=== PATIENT | male | born 1950 | race Caucasian/White ===

== ENCOUNTER 2017-06-20 14:08 | Emergency (ER) | payer MEDICARE, BC ==
[2017-06-20] MEDS ORDERED: SODIUM CHLORIDE 0.9% 500 ML IV STA (14:40)
[2017-06-20] MEDS ORDERED: levETIRAcetam IV 1,000 MG in SALINE 1 100ML.BAG IVPB STA (14:40)
--- NOTE | 2017-06-20 14:50 | ED ---
General Adult HPI - General Chief complaint: Seizure Stated complaint: Seizure Time Seen by Provider: 06/20/17 14:14 Source: patient, family, EMS, RN notes reviewed Mode of arrival: EMS - History of Present Illness Initial comments: 67-year-old male with history of intracranial hemorrhage, and previous diagnosis of seizure disorder presents with a generalized seizure. Patient was washing his car, his left hand began to tighten up, and he fell to the grass. Patient has no recollection of the seizure activity but he is certain that he had a seizure. Approximate time course 3-5 minutes. Patient was initially postictal, he patient was alert and oriented at the time of arrival to the emergency department. He had a seizure approximately one year ago which was secondary to intracranial hemorrhage. Patient did have craniotomy at that time. He has residual left-sided weakness primarily in the upper extremity. He was taking Keppra 500 mg twice a day up until October of this year. He has been off seizure medication for approximately 6 months. Patient denies current headache. Denies new focal weakness. Denies chest or shortness of breath. Patient did bite the inside of his cheek. He has additional past medical history of coronary artery disease status post CABG and is on aspirin daily. No other anticoagulation. - Related Data Home Medications Medication Instructions Recorded Confirmed Aspirin 81 mg PO DAILY 09/30/15 06/20/17 Cholecalciferol [Vitamin D3] 1,000 unit PO DAILY 09/30/15 06/20/17 Lisinopril [Zestril] 10 mg PO DAILY 09/30/15 06/20/17 Timolol 0.25% Ophth Soln [Timoptic 1 drop BOTH EYES DAILY 09/30/15 06/20/17 0.25% Ophth Soln] Acetaminophen Tab [Tylenol Tab] 1,000 mg PO Q6HR PRN 06/20/17 06/20/17 Atorvastatin [Lipitor] 10 mg PO DAILY 06/20/17 06/20/17 Metoprolol Tartrate [Lopressor] 25 mg PO BID 06/20/17 06/20/17 Allergies Allergy/AdvReac Type Severity Reaction Status Date / Time No Known Allergies Allergy Verified 06/20/17 14:18 Review of Systems ROS Statement: Those systems with pertinent positive or pertinent negative responses have been documented in the HPI. ROS Other: All systems not noted in ROS Statement are negative. 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 Pt had been sent to [facility] when he presented with L upper and lower extremity weakness. He never received thrombolytics. His weakness improved. Discharge diagnosis from [facility] included: resolving acute ischemic stroke, atrial myxoma, newly diagnosed wide complex tachycardia. Other HX: Parathyroid adenoma, hyperparathyroidism, RLS, glaucoma. History of Any Multi-Drug Resistant Organisms: None Reported Past Surgical History: Tonsillectomy Additional Past Surgical History / Comment(s): Bilateral cataract removal, colonoscopy, R parathyroidectomy. Past Anesthesia/Blood Transfusion Reactions: No Reported Reaction Past Psychological History: No Psychological Hx Reported Smoking Status: Former smoker Past Alcohol Use History: Occasional - Past Family History Father Family Medical History: Myocardial Infarction ([place]) (Father at the age of the 42 from myocardial infarction) Additional Family Medical History / Comment(s): Pt's biological father of a [place] at age 42 yrs. Mother Family Medical History: Cancer (Mother at age of 82 from leukemia) Additional Family Medical History / Comment(s): Mother of leukemia at age 82 ys. Brother(s) Family Medical History: No Reported History (Patient has one brother no major medical problems) Sister(s) Family Medical History: No Reported History (Patient has 2 sisters no major medical problems) Son(s) Family Medical History: No Reported History (Patient has 2 sons no major medical problems) General Exam General appearance: alert, in no apparent distress Head exam: Present: atraumatic, normocephalic Eye exam: Present: normal appearance, PERRL ENT exam: Present: other (Superficial laceration to the right cheek) Neck exam: Present: normal inspection, full ROM. Absent: tenderness, meningismus Respiratory exam: Present: normal lung sounds bilaterally. Absent: respiratory distress, wheezes Cardiovascular Exam: Present: regular rate, normal rhythm GI/Abdominal exam: Present: soft. Absent: distended, tenderness Extremities exam: Present: normal inspection, normal capillary refill. Absent: pedal edema Back exam: Present: normal inspection, full ROM Neurological exam: Present: alert, oriented X3, CN II-XII intact, motor sensory deficit (Decreased advertising job titles strength in the left upper extremity) Psychiatric exam: Present: normal affect, normal mood Skin exam: Present: warm, dry, intact, normal color. Absent: rash, cyanosis, diaphoretic Course Vital Signs 06/20/17 14:13 Temperature 97.5 F L Pulse Rate 70 Respiratory 16 Rate Blood Pressure 134/77 O2 Sat by Pulse 90 L Oximetry EKG Findings - EKG Comments: EKG Findings:: EKG shows sinus rhythm, ventricular rate 65, WV 190, castration 88, QTC 453, no signs of ST segment elevation or depression, no T-wave abnormality Medical Decision Making - Medical Decision Making 67-year-old male with previous history of intracranial hemorrhage with left- sided deficit presents with seizure activity. This is similar presentation to one year ago when the patient did have spontaneous intracranial hemorrhage with seizure. Patient not currently on any antiseizure medications. On examination patient does have decreased advertising job titles strength in the left upper extremity which according to the patient and family is baseline. Denies any headache. Denies any other symptoms. CT is obtained. This does show right intraparenchymal hemorrhage Auditory studies including CBC, CMP, urinalysis are unremarkable EKG is normal sinus rhythm with no signs of ischemia Patient is given 1 g of Keppra in the emergency department. Patient will be transferred to [facility], this is the site of his previous treatment. Diagnosis: Spontaneous intracranial parenchymal hemorrhage, seizure. Disposition: Transfer to [facility]. - Lab Data Result diagrams: 06/20/17 14:57 06/20/17 14:57 Lab Results 06/20/17 06/20/17 06/20/17 Range/Units 14:57 14:57 15:00 WBC 9.9 (3.8-10.6) k/uL RBC 4.97 (4.30-5.90) m/uL Hgb 16.8 (13.0-17.5) gm/dL Hct 47.6 (39.0-53.0) % MCV 95.8 (80.0-100.0) fL MCH 33.9 (25.0-35.0) pg MCHC 35.4 (31.0-37.0) g/dL RDW 12.2 (11.5-15.5) % Plt Count 210 (150-450) k/uL Neutrophils % 85 % Lymphocytes % 7 % Monocytes % 6 % Eosinophils % 1 % Basophils % 0 % Neutrophils # 8.4 H (1.3-7.7) k/uL Lymphocytes # 0.7 L (1.0-4.8) k/uL Monocytes # 0.6 (0-1.0) k/uL Eosinophils # 0.1 (0-0.7) k/uL Basophils # 0.0 (0-0.2) k/uL Sodium 140 (137-145) mmol/L Potassium 4.3 (3.5-5.1) mmol/L Chloride 108 H (98-107) mmol/L Carbon Dioxide 24 (22-30) mmol/L Anion Gap 8 mmol/L BUN 18 (9-20) mg/dL Creatinine 0.80 (0.66-1.25) mg/dL Est GFR (MDRD) Af Amer >60 (>60 ml/min/1.73 sqM) Est GFR (MDRD) Non-Af >60 (>60 ml/min/1.73 sqM) Glucose 101 H (74-99) mg/dL Calcium 9.1 (8.4-10.2) mg/dL Total Bilirubin 0.9 (0.2-1.3) mg/dL AST 40 (17-59) U/L ALT 52 (21-72) U/L Alkaline Phosphatase 93 (38-126) U/L Total Protein 5.7 L (6.3-8.2) g/dL Albumin 3.8 (3.5-5.0) g/dL Urine Color Yellow Urine Appearance Clear (Clear) Urine pH 5.5 (5.0-8.0) Ur Specific [place] 1.017 (1.001-1.035) Urine Protein Trace H (Negative) Urine Glucose (UA) Negative (Negative) Urine Ketones Trace H (Negative) Urine Blood Negative (Negative) Urine Nitrite Negative (Negative) Urine Bilirubin Negative (Negative) Urine Urobilinogen <2.0 (<2.0) mg/dL Ur Leukocyte Esterase Negative (Negative) Critical Care Time Critical Care Time: Yes Total Critical Care Time: 35 Disposition Clinical Impression: Intracranial hemorrhage, Generalized seizure Disposition: OTHER INSTITUTION NOT DEFINED Condition: Serious Referrals: Bulmaro Acuña MD [Primary Care Provider] - 1-2 days Decision Date: 06/20/17 Decision Time: 15:33 - Out of Hospital Transfer - Req. Specs Out of Hospital Transfer - Requested Specifics: Surgical ICU (Transfer to [facility])
[2017-06-20 15:09] LABS: Basophils % (A) 0 %; CHCM 34.5; Eosinophils # (A) 0.1 k/uL (0-0.7); Eosinophils % (A) 1 %; HCT 47.6 % (39.0-53.0); HDW 2.34; HGB 16.8 gm/dL (13.0-17.5); Luc % (Auto) 1; Lymphocytes # (A) 0.7 k/uL (1.0-4.8); Lymphocytes % (A) 7 %; MCH 33.9 pg (25.0-35.0); MCHC 35.4 g/dL (31.0-37.0); MCV 95.8 fL (80.0-100.0); Mean Platelet Volume 7.3; Monocytes # (A) 0.6 k/uL (0-1.0); Monocytes % (A) 6 %; Neutrophils # (A) 8.4 k/uL (1.3-7.7); Neutrophils % (A) 85 %; RBC 4.97 m/uL (4.30-5.90); RDW 12.2 % (11.5-15.5); WBC 9.9 k/uL (3.8-10.6); WBC (Perox) 9.73
[2017-06-20 15:16] LABS: ALT 52 U/L (21-72); AST 40 U/L (17-59); Alkaline Phosphatase 93 U/L (38-126); Anion Gap 8 mmol/L; Blood Urea Nitrogen 18 mg/dL (9-20); Calcium 9.1 mg/dL (8.4-10.2); Carbon Dioxide 24 mmol/L (22-30); Chloride 108 mmol/L (98-107); Glucose 101 mg/dL (74-99); Non-African American GFR(MDRD) >60 (>60 ml/min/1.73 sqM); Potassium 4.3 mmol/L (3.5-5.1); Sodium 140 mmol/L (137-145); Total Bilirubin 0.9 mg/dL (0.2-1.3); Total Protein 5.7 g/dL (6.3-8.2)
[2017-06-20 15:19] LABS: Appearance,Urine Clear (Clear); Bilirubin,Urine Negative (Negative); Glucose,Urine (UA) Negative (Negative); Ketones,Urine Trace (Negative); Leukocyte Esterase,Urine Negative (Negative); Nitrite,Urine Negative (Negative); PH, Urine 5.5 (5.0-8.0); Protein,Urine Trace (Negative); Specific Gravity,Urine 1.017 (1.001-1.035); UA Billing (MACRO vs. MICRO) CHEM; Urobilinogen,Urine <2.0 mg/dL (<2.0)
--- NOTE | 2017-06-20 15:30 | CT ---
EXAMINATION TYPE: CT brain wo con DATE OF EXAM: 06/20/2017 COMPARISON: NONE HISTORY: Seizure today. CT DLP: 1121.00 mGycm Automated exposure control for dose reduction was used. FINDINGS: There is a 2.2 x 2.2 cm intraparenchymal hemorrhage in the right frontal lobe. There is surrounding v asogenic edema. There is a second area of intraparenchymal hemorrhage in the anterior right parietal lobe measuring 6.36 mm. There is been a previous right frontal craniotomy. Visualized portions of the paranasal sinuses and mastoids are clear. There is evidence of a previous lacunar infarct in the posterior limb of the internal capsule on the right. There is some ex vacuo en largement of the right lateral ventricle. There is only mild associated mass effect. There is no midl ine shift. IMPRESSION: 1. 2 AREAS OF PARENCHYMAL HEMORRHAGE IN THE RIGHT FRONTAL LOBE AND RIGHT ANTERIOR PARIETAL LOBE. 2. MODERATE VASOGENIC EDEMA SURROUNDING THE FRONTAL LOBE LESION. 3. EVIDENCE OF A PREVIOUS LACUNAR INFARCT IN THE POSTERIOR LIMB OF THE RIGHT INTERNAL CAPSULE EXTENDI NG INTO THE CROWDER RADIATA ON THE RIGHT. 4. POSTSURGICAL CHANGE. THIS REPORT WAS PHONED TO DR. CANDELARIO AT THE TIME OF REPORTING.
--- NOTE | 2017-06-20 15:38 | XR ---
EXAMINATION TYPE: XR chest 2V DATE OF EXAM: 06/20/2017 COMPARISON: 10/07/2015 HISTORY: Seizure TECHNIQUE: Frontal and lateral views of the chest are obtained. FINDINGS: Previously seen trace pleural effusions have resolved in the interim. There is no focal air space opacity, pleural effusion, or pneumothorax seen. The cardiac silhouette size is within normal limits. The osseous structures are intact. Mild degenerative changes of the thoracic spine are not ed. Median sternotomy wires are seen. IMPRESSION: No acute cardiopulmonary process with resolution of the previously seen trace pleural ef fusions.
[2017-06-20 15:42] VITALS: RESP 18
[2017-06-20 16:25] VITALS: BP 122/71; PULSE 72; TEMP 97.9
== END 2017-06-20 16:25 | disposition short-term general hospital (02) ==
LOC: EC 14:08
DX: S01.411A Laceration without foreign body of right cheek and temporomandibular area, initial encounter (principal); G40.409 Other generalized epilepsy and epileptic syndromes, not intractable, without status epilepticus; I61.1 Nontraumatic intracerebral hemorrhage in hemisphere, cortical; E78.5 Hyperlipidemia, unspecified; I10 Essential (primary) hypertension; I25.10 Atherosclerotic heart disease of native coronary artery without angina pectoris; H40.9 Unspecified glaucoma; Z87.891 Personal history of nicotine dependence; Z79.82 Long term (current) use of aspirin; Z79.899 Other long term (current) drug therapy; Z86.73 Personal history of transient ischemic attack (TIA), and cerebral infarction without residual deficits; Z95.1 Presence of aortocoronary bypass graft; Z98.890 Other specified postprocedural states; W18.39XA Other fall on same level, initial encounter; Y93.89 Activity, other specified
CPT/HCPCS: 99291; 96365; 36415; 93005; 80053; 85025; 81003; 71020; 70450; J1953

== ENCOUNTER → 2017-07-03 | Outpatient (CLI) | payer MEDICARE, BC ==
--- NOTE | 2017-07-03 11:49 | MR ---
EXAMINATION TYPE: MR brain wo/w con DATE OF EXAM: 07/03/2017 COMPARISON: CT brain 06/20/2017, report of CT brain from outside institution 06/29/2017 HISTORY: intracranial hemorrhage , hemorrhagic stroke TECHNIQUE: Multiplanar, multisequence images of the brain and brainstem is performed without and with IV contras t, utilizing 7 mL intravenous Gadavist . FINDINGS: Diffusion weighted images demonstrate restricted diffusion corresponding to the focal signa l abnormality described on previous reports in the right frontal lobe. There is serpiginous and linea r low signal on T2, inversion recovery sequences along the gyri and sulci atrophy convexity on the ri ght compatible with local hemosiderin deposition and prior hemorrhage. Local vasogenic edema changes are present. Increased signal present within the internal capsule on the right extending into the per iventricular white matter on T2 and inversion recovery sequences likely due to some local chronic enc ephalomalacia and stable. The ventricular system and cisternal spaces are normal in size and there ma y be mild ex vacuo phenomenon the right lateral ventricle as compared to the left. The brain volume is age appropriate. Midline structures demonstrate normal morphology. The craniocervical junction appears within normal limits. Post contrast images demonstrate ring enhancement at the level of patient's prior hemorrhage s and there is some dural enhancement present. The dural venous sinuses appear patent. The visualized sinuses are clear and the globes are intact. IMPRESSION: Findings compatible with patient's history of hematoma, additional follow-up is recommend ed.
== END | disposition home or self-care (01) ==
LOC: RADMRIMAIN 06:30
PROVIDERS: ATTEND Neurological Surgery
DX: I62.9 Nontraumatic intracranial hemorrhage, unspecified (principal); I61.9 Nontraumatic intracerebral hemorrhage, unspecified
CPT/HCPCS: 70553; A9581

== ENCOUNTER 2018-02-24 11:51 | Emergency (ER) | payer MEDICARE, BC ==
[2018-02-24 11:56] VITALS: PULSE 65
[2018-02-24] MEDS ORDERED: SODIUM CHLORIDE 0.9% 500 ML IV STA (12:05)
--- NOTE | 2018-02-24 12:07 | ED ---
General Adult HPI - General Chief complaint: Neuro Symptoms/Deficit Stated complaint: stroke symptoms Time Seen by Provider: 02/24/18 11:55 Source: patient, family, RN notes reviewed Mode of arrival: wheelchair Limitations: no limitations - History of Present Illness Initial comments: This is a 68-year-old male who presents emergency Department with a previous history of a brain bleed and stroke with some residual deficit and left side. Family noted last night he started having slurred speech and was having some coordination problems with his left hand and was dragging his left foot more than normal. Family thought it was just because he was tired but when he woke up this morning and the symptoms persisted they decided to bring to the emergency department. Patient denies any visual disturbance. Patient denies any chest pain palpitations difficulty breathing shortness of breath. Patient denies any neurologic symptoms in the right side. Patient denies any recent fever chills or cough. Patient denies abdominal pain patient denies nausea vomiting or diarrhea. - Related Data Home Medications Medication Instructions Recorded Confirmed Cholecalciferol [Vitamin D3] 1,000 unit PO DAILY@0900 09/30/15 08/23/17 Atorvastatin [Lipitor] 10 mg PO DAILY@0900 06/20/17 08/23/17 Acetaminophen Tab [Tylenol Tab] 650 mg PO Q4H PRN 08/23/17 08/23/17 Lisinopril [Zestril] 20 mg PO DAILY@2100 08/23/17 08/23/17 Sennosides [Senokot] 8.6 mg PO DAILY@0900 08/23/17 08/23/17 Timolol 0.5% Ophth Soln [Timoptic 1 drop BOTH EYES DAILY@0900 08/23/17 08/23/17 0.5% Ophth Soln] levETIRAcetam [Keppra] 500 mg PO Q12HR 08/23/17 08/23/17 Allergies Allergy/AdvReac Type Severity Reaction Status Date / Time No Known Allergies Allergy Verified 02/24/18 11:52 Review of Systems ROS Statement: Those systems with pertinent positive or pertinent negative responses have been documented in the HPI. ROS Other: All systems not noted in ROS Statement are negative. 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 Pt had been sent to [facility] when he presented with L upper and lower extremity weakness. He never received thrombolytics. His weakness improved. Discharge diagnosis from [facility] included: resolving acute ischemic stroke, atrial myxoma, newly diagnosed wide complex tachycardia. Other HX: Parathyroid adenoma, hyperparathyroidism, RLS, glaucoma. History of Any Multi-Drug Resistant Organisms: None Reported Past Surgical History: Coronary Bypass/CABG, Tonsillectomy Additional Past Surgical History / Comment(s): Bilateral cataract removal, colonoscopy, R parathyroidectomy. Brain surgery 2016-nontraumatice hematoma removed Past Anesthesia/Blood Transfusion Reactions: No Reported Reaction Past Psychological History: No Psychological Hx Reported Smoking Status: Former smoker Past Alcohol Use History: Occasional Past Drug Use History: None Reported - Past Family History Father Family Medical History: Myocardial Infarction ([place]) (Father at the age of the 42 from myocardial infarction) Additional Family Medical History / Comment(s): Pt's biological father of a [place] at age 42 yrs. Mother Family Medical History: Cancer (Mother at age of 82 from leukemia) Additional Family Medical History / Comment(s): Mother of leukemia at age 82 ys. Brother(s) Family Medical History: No Reported History (Patient has one brother no major medical problems) Sister(s) Family Medical History: No Reported History (Patient has 2 sisters no major medical problems) Son(s) Family Medical History: No Reported History (Patient has 2 sons no major medical problems) General Exam - General Exam Comments Initial Comments: GENERAL: Patient is well-developed and well-nourished. Patient is nontoxic and well- hydrated and is in no acute distress. ENT: Neck is soft and supple. No significant lymphadenopathy is noted. Oropharynx is clear. Moist mucous membranes. Neck has full range of motion without eliciting any pain. EYES: The sclera were anicteric and conjunctiva were pink and moist. Extraocular movements were intact and pupils were equal round and reactive to light. Eyelids were unremarkable. PULMONARY: Unlabored respirations. Good breath sounds bilaterally. No audible rales rhonchi or wheezing was noted. CARDIOVASCULAR: There is a regular rate and rhythm without any murmurs gallops or rubs. ABDOMEN: Soft and nontender with normal bowel sounds. No palpable organomegaly was noted. There is no palpable pulsatile mass. SKIN: Skin is clear with no lesions or rashes and otherwise unremarkable. NEUROLOGIC: Patient is alert and oriented x3. Cranial nerves II through XII are grossly intact. Motor and sensory are also intact. Patient has some slurred speech. Symmetrical smile. Patient's finger-nose on the left is grossly off. MUSCULOSKELETAL: Normal extremities with adequate strength and full range of motion. No lower extremity swelling or edema. No calf tenderness. LYMPHATICS: No significant lymphadenopathy is noted PSYCHIATRIC: Normal psychiatric evaluation. Normal interpersonal interactions appears functionally intact in deals appropriately with others. No signs of depression. No signs of anxiety. Limitations: no limitations Course Vital Signs 02/24/18 11:52 Temperature 97.7 F Pulse Rate 65 Respiratory 18 Rate Blood Pressure 184/80 O2 Sat by Pulse 94 L Oximetry Medical Decision Making - Medical Decision Making EKG shows normal sinus rhythm at 60 bpm VT interval is 186 QRS is 86 QT interval 426 QTC is 426 per patient's EKG shows no ST segment elevation or depression or T wave abnormalities are noted. Chest x-ray shows no acute abnormality. Computed tomography scan of the brain shows intracranial hemorrhage in the same area that the patient had it before except now it is larger and there is a 4 mm shift. Family request [facility]. I spoke with [facility] and they accepted the patient. - Lab Data Result diagrams: 02/24/18 12:08 02/24/18 12:08 Lab Results 02/24/18 02/24/18 02/24/18 Range/Units 12:08 12:08 12:08 WBC 7.0 (3.8-10.6) k/uL RBC 5.45 (4.30-5.90) m/uL Hgb 17.4 (13.0-17.5) gm/dL Hct 49.7 (39.0-53.0) % MCV 91.2 (80.0-100.0) fL MCH 31.8 (25.0-35.0) pg MCHC 34.9 (31.0-37.0) g/dL RDW 12.2 (11.5-15.5) % Plt Count 203 (150-450) k/uL Neutrophils % 72 % Lymphocytes % 17 % Monocytes % 6 % Eosinophils % 3 % Basophils % 1 % Neutrophils # 5.1 (1.3-7.7) k/uL Lymphocytes # 1.2 (1.0-4.8) k/uL Monocytes # 0.4 (0-1.0) k/uL Eosinophils # 0.2 (0-0.7) k/uL Basophils # 0.0 (0-0.2) k/uL PT (9.0-12.0) sec INR (<1.2) APTT (22.0-30.0) sec Sodium 142 (137-145) mmol/L Potassium 4.5 (3.5-5.1) mmol/L Chloride 105 (98-107) mmol/L Carbon Dioxide 25 (22-30) mmol/L Anion Gap 12 mmol/L BUN 12 (9-20) mg/dL Creatinine 0.90 (0.66-1.25) mg/dL Est GFR (CKD-EPI)AfAm >90 (>60 ml/min/1.73 sqM) Est GFR (CKD-EPI)NonAf 86 (>60 ml/min/1.73 sqM) Glucose 105 H (74-99) mg/dL Calcium 9.7 (8.4-10.2) mg/dL Total Bilirubin 0.7 (0.2-1.3) mg/dL AST 27 (17-59) U/L ALT 46 (21-72) U/L Alkaline Phosphatase 81 (38-126) U/L Total Creatine Kinase 59 (55-170) U/L CK-MB (CK-2) 0.5 (0.0-2.4) ng/mL CK-MB (CK-2) Rel Index 0.8 Troponin I <0.012 (0.000-0.034) ng/mL Total Protein 6.1 L (6.3-8.2) g/dL Albumin 4.2 (3.5-5.0) g/dL 02/24/18 Range/Units 12:08 WBC (3.8-10.6) k/uL RBC (4.30-5.90) m/uL Hgb (13.0-17.5) gm/dL Hct (39.0-53.0) % MCV (80.0-100.0) fL MCH (25.0-35.0) pg MCHC (31.0-37.0) g/dL RDW (11.5-15.5) % Plt Count (150-450) k/uL Neutrophils % % Lymphocytes % % Monocytes % % Eosinophils % % Basophils % % Neutrophils # (1.3-7.7) k/uL Lymphocytes # (1.0-4.8) k/uL Monocytes # (0-1.0) k/uL Eosinophils # (0-0.7) k/uL Basophils # (0-0.2) k/uL PT 10.2 (9.0-12.0) sec INR 1.0 (<1.2) APTT 24.2 (22.0-30.0) sec Sodium (137-145) mmol/L Potassium (3.5-5.1) mmol/L Chloride (98-107) mmol/L Carbon Dioxide (22-30) mmol/L Anion Gap mmol/L BUN (9-20) mg/dL Creatinine (0.66-1.25) mg/dL Est GFR (CKD-EPI)AfAm (>60 ml/min/1.73 sqM) Est GFR (CKD-EPI)NonAf (>60 ml/min/1.73 sqM) Glucose (74-99) mg/dL Calcium (8.4-10.2) mg/dL Total Bilirubin (0.2-1.3) mg/dL AST (17-59) U/L ALT (21-72) U/L Alkaline Phosphatase (38-126) U/L Total Creatine Kinase (55-170) U/L CK-MB (CK-2) (0.0-2.4) ng/mL CK-MB (CK-2) Rel Index Troponin I (0.000-0.034) ng/mL Total Protein (6.3-8.2) g/dL Albumin (3.5-5.0) g/dL Disposition Clinical Impression: Intraparenchymal hemorrhage of brain Disposition: OTHER INSTITUTION NOT DEFINED Referrals: Bulmaro Acuña MD [Primary Care Provider] - 1-2 days Time of Disposition: 12:55 - Out of Hospital Transfer - Req. Specs Out of Hospital Transfer - Requested Specifics: Other Emergency Center ([facility]
[2018-02-24 12:26] LABS: Basophils % (A) 1 %; Eosinophils # (A) 0.2 k/uL (0-0.7); Eosinophils % (A) 3 %; HCT 49.7 % (39.0-53.0); HGB 17.4 gm/dL (13.0-17.5); Lymphocytes # (A) 1.2 k/uL (1.0-4.8); Lymphocytes % (A) 17 %; MCH 31.8 pg (25.0-35.0); MCHC 34.9 g/dL (31.0-37.0); MCV 91.2 fL (80.0-100.0); Mean Platelet Volume 7.4; Monocytes # (A) 0.4 k/uL (0-1.0); Monocytes % (A) 6 %; Neutrophils # (A) 5.1 k/uL (1.3-7.7); Neutrophils % (A) 72 %; Platelet Count 203 k/uL (150-450); RBC 5.45 m/uL (4.30-5.90); RDW 12.2 % (11.5-15.5)
[2018-02-24 12:36] LABS: Partial Thromboplastin Time 24.2 sec (22.0-30.0); Prothrombin Time 10.2 sec (9.0-12.0)
[2018-02-24 12:38] LABS: ALT 46 U/L (21-72); AST 27 U/L (17-59); Albumin 4.2 g/dL (3.5-5.0); Alkaline Phosphatase 81 U/L (38-126); Anion Gap 12 mmol/L; Blood Urea Nitrogen 12 mg/dL (9-20); Calcium 9.7 mg/dL (8.4-10.2); Carbon Dioxide 25 mmol/L (22-30); Chloride 105 mmol/L (98-107); Glucose 105 mg/dL (74-99); Potassium 4.5 mmol/L (3.5-5.1); Sodium 142 mmol/L (137-145); Total Bilirubin 0.7 mg/dL (0.2-1.3); Total Protein 6.1 g/dL (6.3-8.2)
[2018-02-24 12:48] LABS: Creatine Kinase 59 U/L (55-170)
--- NOTE | 2018-02-24 12:54 | XR ---
EXAMINATION TYPE: XR chest 2V DATE OF EXAM: 02/24/2018 COMPARISON: Chest x-ray June 20, 2017. HISTORY: Altered mental status and weakness TECHNIQUE: Frontal and lateral views of the chest are obtained. FINDINGS: Overlying sternal wires are redemonstrated. There is no focal air space opacity, pleural ef fusion, or pneumothorax seen. The cardiac silhouette size is within normal limits. The osseous str uctures are intact. IMPRESSION: No acute cardiopulmonary process currently.
[2018-02-24 13:00] LABS: Creatine Kinase MB 0.5 ng/mL (0.0-2.4); Troponin I <0.012 ng/mL (0.000-0.034)
--- NOTE | 2018-02-24 13:00 | CT ---
EXAMINATION TYPE: CT brain wo con for TPA DATE OF EXAM: 02/24/2018 COMPARISON: 06/20/2017 and 07/03/2017 HISTORY: Patient complains of left side weakness. Patient has a history of prior strokes. CT DLP: 1073 mGycm Automated exposure control for dose reduction was used. FINDINGS: Hyperattenuated multilobulated oval area is seen within the right frontal lobe now measuring 4.2 x 5 5.0 x 4.3 cm in the same location in the support prior intracranial hemorrhage on the exam of 08/23/20 17. There is surrounding vasogenic edema. Posterior to this there are 2 foci of subcentimeter hyperat tenuation at the pabon-white junction of the right frontal lobe on series 3 image 36 and 39. There is mass effect around the adjacent peripheral gyri and sulci from the index mass and mass effect upon th e anterior horn of the right lateral ventricle. Additionally there is right to left midline shift of 4 mm. Right-sided calvarial frontal craniotomy defect is noted. Again there is an old CSF attenuated lacunar injury of the right lentiform nucleus. No intraventricul ar or subdural fluid collection or present. No transependymal edema. Visualized paranasal sinuses are well aerated. No transtentorial or uncal herniation. IMPRESSION: RIGHT FRONTAL INTRAPARENCHYMAL HEMORRHAGE WITH FEW SATELLITE FOCI OF HEMORRHAGE, IN THE SAME LOCATION AND ENLARGED FROM THE PRIOR OF 06/20/2017 CONCERNING FOR UNDERLYING HEMORRHAGIC MASS WITH SURROUNDING VASOGENIC EDEMA AND 4 MM RIGHT LEFT MIDLINE SHIFT. FINDINGS WERE COMMUNICATING WITH THE ORDERING ER PHYSICIAN DR. PHILLIPS AT 1240 ON 02/24/[address] ALVARADO.
[2018-02-24] MEDS ORDERED: hydrALAZINE HCL 20 MG/ML 1 ML VIAL IVP STA (13:09)
[2018-02-24 13:21] VITALS: BP 151/92; RESP 16; TEMP 98.3
== END 2018-02-24 13:30 | disposition other institution (70) ==
LOC: EC 11:51
DX: I62.9 Nontraumatic intracranial hemorrhage, unspecified (principal); I10 Essential (primary) hypertension; E78.5 Hyperlipidemia, unspecified; Z86.73 Personal history of transient ischemic attack (TIA), and cerebral infarction without residual deficits; Z95.1 Presence of aortocoronary bypass graft; Z87.891 Personal history of nicotine dependence; Z79.899 Other long term (current) drug therapy
CPT/HCPCS: 36415; 93005; 80053; 82550; 82553; 84484; 85025; 85610; 85730; 71046; 70450; 99285; 96374; J0360

== ENCOUNTER 2019-01-26 09:56 | Emergency (ER) | payer MEDICARE, BC ==
[2019-01-26 10:04] VITALS: TEMP 98.1
[2019-01-26] MEDS ORDERED: SODIUM CHLORIDE 0.9% 500 ML 500 ML IV STA (10:15)
--- NOTE | 2019-01-26 10:39 | ED ---
General Adult HPI - General Chief complaint: Neuro Symptoms/Deficit Stated complaint: lt hand weakness Time Seen by Provider: 01/26/19 10:10 Source: patient, family, RN notes reviewed Mode of arrival: wheelchair Limitations: no limitations - History of Present Illness Initial comments: this is a 68-year-old male who presents emergency Department complaining of left-sided weakness. Patient states he's had previous strokes in the past he has residual left leg and left arm weakness. Patient states he was at his baseline last night when he went to bed. Patient states when he woke up this morning he noticed his left arm lacks some coordination and his left leg was also weaker and he was dragging a little bit when he walked. Though he normally has some baseline weakness in the left side this was more than normal. Patient denied any headache patient denies any numbness per patient denies any speech disturbance or visual disturbance. Patient denies any chest pain difficulty breathing shortness of breath per patient denies abdominal pain patient's nausea vomiting diarrhea. - Related Data Home Medications Medication Instructions Recorded Confirmed Cholecalciferol [Vitamin D3] 1,000 unit PO DAILY 09/30/15 01/26/19 Atorvastatin [Lipitor] 10 mg PO DAILY 06/20/17 01/26/19 Acetaminophen Tab [Tylenol Tab] 650 mg PO Q4H PRN 08/23/17 01/26/19 Lisinopril [Zestril] 20 mg PO DAILY 08/23/17 01/26/19 Sennosides [Senokot] 8.6 mg PO DAILY 08/23/17 01/26/19 Timolol 0.5% Ophth Soln [Timoptic 1 drop BOTH EYES DAILY 08/23/17 01/26/19 0.5% Ophth Soln] HYDROcodone/APAP 7.5-325MG [[place] 1 tab PO HS 01/26/19 01/26/19 7.5-325] Lisinopril [Zestril] 20 mg PO DAILY 01/26/19 01/26/19 Meclizine [Antivert] 25 mg PO TID PRN 01/26/19 01/26/19 levETIRAcetam [Keppra] 1,000 mg PO Q12HR 01/26/19 01/26/19 rOPINIRole HCL [Requip] 1 mg PO QID 01/26/19 01/26/19 tiZANidine HCL [Zanaflex] 4 mg PO BID 01/26/19 01/26/19 Allergies Allergy/AdvReac Type Severity Reaction Status Date / Time No Known Allergies Allergy Verified 01/26/19 10:12 Review of Systems ROS Statement: Those systems with pertinent positive or pertinent negative responses have been documented in the HPI. ROS Other: All systems not noted in ROS Statement are negative. 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 Pt had been sent to [facility] when he presented with L upper and lower extremity weakness. He never received thrombolytics. His weakness improved. Discharge diagnosis from [facility] included: resolving acute ischemic stroke, atrial myxoma, newly diagnosed wide complex tachycardia. Other HX: Parathyroid adenoma, hyperparathyroidism, RLS, glaucoma. History of Any Multi-Drug Resistant Organisms: None Reported Past Surgical History: Coronary Bypass/CABG, Tonsillectomy Additional Past Surgical History / Comment(s): Bilateral cataract removal, colonoscopy, R parathyroidectomy. Brain surgery 2016-nontraumatice hematoma removed Past Anesthesia/Blood Transfusion Reactions: No Reported Reaction Past Psychological History: No Psychological Hx Reported Smoking Status: Former smoker Past Alcohol Use History: Occasional Past Drug Use History: None Reported - Past Family History Father Family Medical History: Myocardial Infarction (GA) (Father at the age of the 42 from myocardial infarction) Additional Family Medical History / Comment(s): Pt's biological father of a GA at age 42 yrs. Mother Family Medical History: Cancer (Mother at age of 82 from leukemia) Additional Family Medical History / Comment(s): Mother of leukemia at age 82 ys. Brother(s) Family Medical History: No Reported History (Patient has one brother no major medical problems) Sister(s) Family Medical History: No Reported History (Patient has 2 sisters no major medical problems) Son(s) Family Medical History: No Reported History (Patient has 2 sons no major medical problems) General Exam - General Exam Comments Initial Comments: GENERAL: Patient is well-developed and well-nourished. Patient is nontoxic and well- hydrated and is in no acute distress. ENT: Neck is soft and supple. Neck has full range of motion without eliciting any pain. EYES: The sclera were anicteric and conjunctiva were pink and moist. Extraocular movements were intact and pupils were equal round and reactive to light. Eyelids were unremarkable. PULMONARY: Unlabored respirations. Good breath sounds bilaterally. No audible rales rhonchi or wheezing was noted. CARDIOVASCULAR: There is a regular rate and rhythm without any murmurs gallops or rubs. ABDOMEN: Soft and nontender with normal bowel sounds. No palpable organomegaly was noted. There is no palpable pulsatile mass. SKIN: Skin is clear with no lesions or rashes and otherwise unremarkable. NEUROLOGIC: Patient is alert and oriented x3. Cranial nerves II through XII are grossly intact. Motor and sensory are also intact. Normal speech, volume and content. Symmetrical smile. Patient's cerebellar testing with finger to nose was normal on the right but abnormal on the left. Patient's heel to [place] on the right was normal on the left was abnormal. Patient's powder mixer was normal bilaterally patient's dorsi and plantar flexion are normal bilaterally MUSCULOSKELETAL: Normal extremities with adequate strength and full range of motion. No lower extremity swelling or edema. No calf tenderness. LYMPHATICS: No significant lymphadenopathy is noted PSYCHIATRIC: Normal psychiatric evaluation. Limitations: no limitations Course Vital Signs 01/26/19 01/26/19 01/26/19 10:01 10:22 10:30 Temperature 98.1 F Pulse Rate 61 59 L 63 Respiratory 18 18 18 Rate Blood Pressure 144/94 128/80 139/79 O2 Sat by Pulse 94 L 100 100 Oximetry 01/26/19 10:45 Temperature Pulse Rate 60 Respiratory 18 Rate Blood Pressure 136/83 O2 Sat by Pulse 100 Oximetry Medical Decision Making - Medical Decision Making Soon as I interviewed the patient I called a code stroke overhead CT of the brain and this patient showed a 1.7 cm hyperdensity high right frontal lobe is felt to reflect hemorrhage with or without underlying mass. Surrou nding vasogenic edema is noted there is a small curvilinear area of increased attenuation high right frontal lobe noted as well that may reflect foci of subarachnoid hemorrhage suspect right MCA aneurysm. I spoke with Dr. Luciano before and after the CAT scan she wanted the patient transferred to [place] I spoke with the family patient wanted to go to [place] seemed reluctant but agreed with whatever the patient wanted. I spoke with the physician doctor's assistant for Dr. Luciano and we are transferring the patient to [place] neuro ICU. I sent the patient to [place] and gave the paramedics Cardene IV in case the blood pressure elevated over 160. Currently the blood pressure was 140s systolic. Patient's EKG showed normal sinus rhythm at 60 bpm AR interval 290 QRS is 86 QT interval 422 QTC is 422. Patient's EKG shows no ST segment elevation or depression or T wave abnormalities are noted. - Lab Data Result diagrams: 01/26/19 10:59 01/26/19 10:59 Lab Results 01/26/19 01/26/19 01/26/19 Range/Units 10:20 10:59 10:59 WBC 7.5 (3.8-10.6) k/uL RBC 5.73 (4.30-5.90) m/uL Hgb 17.6 H (13.0-17.5) gm/dL Hct 52.7 (39.0-53.0) % MCV 92.1 (80.0-100.0) fL MCH 30.8 (25.0-35.0) pg MCHC 33.5 (31.0-37.0) g/dL RDW 12.4 (11.5-15.5) % Plt Count 207 (150-450) k/uL Neutrophils % 70 % Lymphocytes % 17 % Monocytes % 6 % Eosinophils % 4 % Basophils % 1 % Neutrophils # 5.3 (1.3-7.7) k/uL Lymphocytes # 1.2 (1.0-4.8) k/uL Monocytes # 0.5 (0-1.0) k/uL Eosinophils # 0.3 (0-0.7) k/uL Basophils # 0.0 (0-0.2) k/uL PT (9.0-12.0) sec INR (<1.2) APTT (22.0-30.0) sec Sodium 137 (137-145) mmol/L Potassium 4.6 (3.5-5.1) mmol/L Chloride 104 (98-107) mmol/L Carbon Dioxide 27 (22-30) mmol/L Anion Gap 6 mmol/L BUN 16 (9-20) mg/dL Creatinine 0.87 (0.66-1.25) mg/dL Est GFR (CKD-EPI)AfAm >90 (>60 ml/min/1.73 sqM) Est GFR (CKD-EPI)NonAf 88 (>60 ml/min/1.73 sqM) Glucose 99 (74-99) mg/dL POC Glucose (mg/dL) 88 (75-99) mg/dL POC Glu Front Desk Coordinator ID Caty Anderson Calcium 9.4 (8.4-10.2) mg/dL Total Bilirubin 1.0 (0.2-1.3) mg/dL AST 31 (17-59) U/L ALT 65 (21-72) U/L Alkaline Phosphatase 73 (38-126) U/L Total Creatine Kinase (55-170) U/L Total Protein 5.9 L (6.3-8.2) g/dL Albumin 3.8 (3.5-5.0) g/dL 01/26/19 01/26/19 Range/Units 10:59 10:59 WBC (3.8-10.6) k/uL RBC (4.30-5.90) m/uL Hgb (13.0-17.5) gm/dL Hct (39.0-53.0) % MCV (80.0-100.0) fL MCH (25.0-35.0) pg MCHC (31.0-37.0) g/dL RDW (11.5-15.5) % Plt Count (150-450) k/uL Neutrophils % % Lymphocytes % % Monocytes % % Eosinophils % % Basophils % % Neutrophils # (1.3-7.7) k/uL Lymphocytes # (1.0-4.8) k/uL Monocytes # (0-1.0) k/uL Eosinophils # (0-0.7) k/uL Basophils # (0-0.2) k/uL PT 10.5 (9.0-12.0) sec INR 1.0 (<1.2) APTT 25.6 (22.0-30.0) sec Sodium (137-145) mmol/L Potassium (3.5-5.1) mmol/L Chloride (98-107) mmol/L Carbon Dioxide (22-30) mmol/L Anion Gap mmol/L BUN (9-20) mg/dL Creatinine (0.66-1.25) mg/dL Est GFR (CKD-EPI)AfAm (>60 ml/min/1.73 sqM) Est GFR (CKD-EPI)NonAf (>60 ml/min/1.73 sqM) Glucose (74-99) mg/dL POC Glucose (mg/dL) (75-99) mg/dL POC Glu Front Desk Coordinator ID Calcium (8.4-10.2) mg/dL Total Bilirubin (0.2-1.3) mg/dL AST (17-59) U/L ALT (21-72) U/L Alkaline Phosphatase (38-126) U/L Total Creatine Kinase 53 L (55-170) U/L Total Protein (6.3-8.2) g/dL Albumin (3.5-5.0) g/dL Critical Care Time Critical Care Time: Yes Total Critical Care Time: 35 Disposition Clinical Impression: Cerebrovascular accident, Intraparenchymal hemorrhage of brain Disposition: OTHER INSTITUTION NOT DEFINED Is patient prescribed a controlled substance at d/c from ED?: No Referrals: Bulmaro Acuña MD [Primary Care Provider] - 1-2 days Time of Disposition: 11:36 - Out of Hospital Transfer - Req. Specs Out of Hospital Transfer - Requested Specifics: Other Emergency Center ([place] neuro ICU)
[2019-01-26 10:40] LABS: Glucose,Whole Blood 88 mg/dL (75-99)
--- NOTE | 2019-01-26 10:47 | CT ---
EXAMINATION TYPE: CT brain wo con for TPA DATE OF EXAM: 01/26/2019 COMPARISON: 02/24/2018 HISTORY: CODE STROKE, Neuro deficits CT DLP: 1099.[address] of the brain was performed. 1.7 cm hyperdensity high right frontal lobe is felt to reflect hemorrhage with or without underlying mass. Surrounding vasogenic edema noted. This is much smaller than on prior examination. No additiona l areas of hemorrhage identified. Small curvilinear areas of increased attenuation high right frontal lobe noted as well may reflect small foci of subarachnoid hemorrhage. No additional areas of hemorrh age is seen. Suspect right MCA territory aneurysm. Right frontal craniotomy changes identified. The ventricles basal cisterns and sulci overlying the cerebral convexities and mild/moderate enlargem ent. Remote insult right centrum semioval bilaterally and koch radiata. If symptoms persist consider MRI. IMPRESSION: 1. 1.7 cm hyperdensity high right frontal lobe is felt to reflect hemorrhage with or without underlyi ng mass. Surrounding vasogenic edema noted. 2.Small curvilinear areas of increased attenuation high right frontal lobe noted as well may reflect small foci of subarachnoid hemorrhage. 3.Suspect right MCA territory aneurysm.
[2019-01-26 11:07] LABS: Basophils % (A) 1 %; Eosinophils # (A) 0.3 k/uL (0-0.7); Eosinophils % (A) 4 %; HCT 52.7 % (39.0-53.0); HGB 17.6 gm/dL (13.0-17.5); Lymphocytes # (A) 1.2 k/uL (1.0-4.8); Lymphocytes % (A) 17 %; MCH 30.8 pg (25.0-35.0); MCHC 33.5 g/dL (31.0-37.0); MCV 92.1 fL (80.0-100.0); Mean Platelet Volume 6.7; Monocytes # (A) 0.5 k/uL (0-1.0); Monocytes % (A) 6 %; Neutrophils # (A) 5.3 k/uL (1.3-7.7); Neutrophils % (A) 70 %; Platelet Count 207 k/uL (150-450); RBC 5.73 m/uL (4.30-5.90); RDW 12.4 % (11.5-15.5); WBC 7.5 k/uL (3.8-10.6)
[2019-01-26] MEDS ORDERED: niCARdipine 20 MG in SODIUM CHLORIDE 0.9% 192 ML IV ONE (11:15)
[2019-01-26 11:17] LABS: ALT 65 U/L (21-72); AST 31 U/L (17-59); Albumin 3.8 g/dL (3.5-5.0); Alkaline Phosphatase 73 U/L (38-126); Anion Gap 6 mmol/L; Blood Urea Nitrogen 16 mg/dL (9-20); Calcium 9.4 mg/dL (8.4-10.2); Carbon Dioxide 27 mmol/L (22-30); Chloride 104 mmol/L (98-107); Glucose 99 mg/dL (74-99); Potassium 4.6 mmol/L (3.5-5.1); Sodium 137 mmol/L (137-145); Total Protein 5.9 g/dL (6.3-8.2)
[2019-01-26 11:19] LABS: Partial Thromboplastin Time 25.6 sec (22.0-30.0); Prothrombin Time 10.5 sec (9.0-12.0)
[2019-01-26 11:25] LABS: Creatine Kinase 53 U/L (55-170)
[2019-01-26 11:38] LABS: Creatine Kinase MB 0.4 ng/mL (0.0-2.4); Troponin I <0.012 ng/mL (0.000-0.034)
--- NOTE | 2019-01-26 11:47 | CT ---
EXAMINATION TYPE: CT angio head neck DATE OF EXAM: 01/26/2019 COMPARISON: 02/24/2018 HISTORY: Neuro deficits CT DLP: 454.2 mGycm CONTRAST: Performed without and with IV Contrast, patient injected with 65 ml mL of Isovue 370. Combination Contrast CTA cervical carotids and [place] CTA cervical carotids with 3-D recons truction Contrast CTA of the cervical carotids was performed 3-D reconstruction imaging obtained at a separate workstation. Right carotid system: Mild plaque is seen of the right common carotid artery. There is mild plaque a lso noted at the carotid bulb and proximal ICA. No significant diameter reduction. ECA is patent. Right vertebral artery appears unremarkable. Left carotid system: Mild plaque is seen of the left common carotid artery. There is mild plaque als o noted at the carotid bulb and proximal ICA. No significant diameter reduction. ECA is patent. Lef t vertebral artery appears unremarkable. IMPRESSION: 1. No significant diameter reduction to account for the patient's symptoms. CTA [place] with 3-D reconstruction Contrast CTA of the [place] was performed 3-D reconstruction imaging obtained at a separate workstation. Vertebrobasilar system as well as intracranial portions of the internal carotid arteries and their ma dotty tributaries are patent. 8 mm aneurysm right MCA territory. No additional aneurysms identified wit h certainty at this time. Please note MRI provides greater sensitivity and specificity. Right frontal lobe hemorrhage again noted. Underlying mass is difficult to exclude. IMPRESSION: 1. 8 mm aneurysm right MCA territory. No additional aneurysms identified with certainty at this time . 2.Right frontal lobe hemorrhage again noted. Underlying mass is difficult to exclude.
[2019-01-26 11:48] VITALS: BP 136/85; PULSE 59; RESP 16
== END 2019-01-26 11:37 | disposition other institution (70) ==
LOC: EC 09:56
DX: I63.9 Cerebral infarction, unspecified (principal); I61.9 Nontraumatic intracerebral hemorrhage, unspecified; R29.703 NIHSS score 3; E78.5 Hyperlipidemia, unspecified; I10 Essential (primary) hypertension; Z79.899 Other long term (current) drug therapy; Z87.891 Personal history of nicotine dependence; Z95.1 Presence of aortocoronary bypass graft
CPT/HCPCS: 36415; 93005; 80053; 82550; 82553; 84484; 85025; 85610; 85730; 70496; 70450; 70498; 99291; Q9967

== ENCOUNTER → 2019-08-27 | Outpatient (CLI) | payer MEDICARE, BC ==
[2019-08-27 14:06] LABS: African American GFR (CKD) >90 (>60 ml/min/1.73 sqM); Blood Urea Nitrogen 17 mg/dL (9-20)
--- NOTE | 2019-08-27 15:19 | CT ---
EXAMINATION TYPE: CT angio head neck DATE OF EXAM: 08/27/2019 HISTORY: Follow up aneurysm COMPARISON: CTA head and neck January 26, 2019 CT DLP: 451 mGycm. Automated Exposure Control for Dose Reduction was Utilized. TECHNIQUE: CTA scan of the head and neck are performed with IV Contrast, patient injected with 65 mL of Isovue 370, axial images are obtained, coronal and sagittal reformatted images are reviewed. Thre e-D reconstructed images are created on an independent workstation and reviewed. FINDINGS: Carotid/Vascular Structures: Normal three-vessel origin from aortic arch. Normal origin right common carotid artery from brachiocephalic artery. No significant plaque or stenosis in right common or inte rnal carotid artery. Patent right external carotid artery without significant plaque or stenosis. Mild peripheral plaque left carotid bulb extending into proximal internal carotid artery without sign ificant stenosis. Patent external carotid artery without significant plaque or stenosis. Codominant vertebrobasilar system. No significant stenosis or new aneurysmal change of posterior circ ulation. Hypoplastic bilateral posterior communicating arteries. Redemonstration of 7 mm right middle cerebral artery aneurysm axial image 36 measures slightly smaller versus prior. No new aneurysm is e vident. Patent anterior communicating artery is seen. Other: High right parietal craniotomy change redemonstrated. There is 1.8 cm hyperdense right frontal mass with surrounding vasogenic edema image 14 series 6 likely slightly smaller versus prior. Old in farct right basal ganglion external capsule redemonstrated. Exaggerated cervical curvature with scoli otic curvature and multilevel spurring and disc space narrowing. Partial visualization of sternal wir es. IMPRESSION: Aneurysm distal right middle cerebral artery measures 7 mm slightly smaller versus prior. No new aneurysm is evident. No significant stenosis in common or internal carotid arteries bilateral ly.
== END | disposition home or self-care (01) ==
LOC: RADCTMAIN 12:29
PROVIDERS: ATTEND Psychiatry & Neurology Vascular Neurology
DX: I67.1 Cerebral aneurysm, nonruptured (principal)
CPT/HCPCS: 82565; 84520; 70496; 70498; 36415; Q9967

== ENCOUNTER → 2023-02-18 | Outpatient (CLI) | payer MEDICARE, BC ==
[2023-02-18 10:59] LABS: African American GFR (CKD) >90 (>60 ml/min/1.73 sqM); Blood Urea Nitrogen 21 mg/dL (9-20); Non-African American GFR(CKD) 87 (>60 ml/min/1.73 sqM)
--- NOTE | 2023-02-18 12:26 | CT ---
EXAMINATION TYPE: CT angio head DATE OF EXAM: 02/18/2023 11:37 AM COMPARISON: 08/27/2019 HISTORY: f/u aneurysm CT DLP: 2091.8 mGycm Automated exposure control for dose reduction was used. TECHNIQUE: Performed without and with IV Contrast, patient injected with 100 mL of Isovue 370. . FINDINGS: There is an 8 x 6 mm aneurysm involving the right MCA. The level of the M2 segment trifurcation. Ther e is a distal fusiform dilation of the remaining portion of the M2 segment measuring 4 mm. Additional ly suspect a partially thrombosed aneurysm at the level of the M3 segment eccentric calcification reid suring 8 mm. There is generalized degenerative changes with remote ischemic change involving the right basal gangl ia and right white matter in the frontal and parietal lobes. Postcraniotomy changes are seen. IMPRESSION: 1. THERE IS A 9 MM ANEURYSM BELOW THE M2 SEGMENT TRIFURCATION PREVIOUSLY MEASURING 7 MM. 2. THERE APPEARS TO BE AN ADDITIONAL PARTIALLY THROMBOSED ANEURYSM AND 3 SEGMENT MEASURING 8 MM BEST SEEN ON AXIAL IMAGE 21. 3. POSTCRANIOTOMY CHANGES ARE SEEN WITH ENCEPHALOMALACIA. NO DEFINITE RESIDUAL ENHANCEMENT IN THE [facility] G[facility] BED.
== END | disposition home or self-care (01) ==
LOC: RADCTMAIN 10:06
PROVIDERS: ATTEND Psychiatry & Neurology Neurology
DX: I67.1 Cerebral aneurysm, nonruptured (principal); G93.89 Other specified disorders of brain; Z98.890 Other specified postprocedural states
CPT/HCPCS: 82565; 84520; 70496; 36415; Q9967